=== PATIENT | female | born 1930 | race African-American/Black ===

== ENCOUNTER 2018-08-11 06:06 | Emergency (ER) | payer OTHER ==
[~2018-08-11] VITALS: Ht 165.1 cm; Wt 73.0 kg
[2018-08-11] MEDS ORDERED: MORPHINE SULFATE 4 MG/ML CPJ (NOT FOR IM USE) IV STA (06:23)
[2018-08-11] MEDS ORDERED: MORPHINE SULFATE 10 MG/ML CPJ IV ONE ×2 (06:45→13:15)
[2018-08-11 07:27] LABS: CHLORIDE 106 mEq/L (98-107)
[2018-08-11 07:29] LABS: INR 1.1; PROTHROMBIN TIME 10.7 sec (9.1-11.1)
[2018-08-11 07:32] LABS: HEMATOCRIT. 33.7 % (36.0-48.0); HEMOGLOBIN. 10.8 g/dL (12.0-16.0); MEAN CORPUSCULAR HEMOGLOBIN 24.9 pg (28.0-32.0); MEAN CORPUSCULAR VOLUME 77.6 fL (81.0-99.0); MEAN PLATELET VOLUME 8.7 fl (7.4-10.4); PLATELET 237 x1000/uL (130-400); RED BLOOD CELL COUNT 4.34 mill/uL (4.2-5.4); RED CELL DISTRIBUTION WIDTH 15.1 % (11.6-14.6)
[2018-08-11 08:14] LABS: PLATELET ESTIMATE NORMAL
[2018-08-11] MEDS ORDERED: KETOROLAC 30MG/ML VIAL IV ONE (08:45)
[2018-08-11 12:54] VITALS: BP 132/78
[2018-08-11] MEDS ORDERED: MORPHINE SULFATE 4 MG/ML CPJ (NOT FOR IM USE) IV ONE (13:00)
== END 2018-08-11 13:38 | disposition short-term general hospital (02) ==
LOC: ER 06:06 → CANBEDREQ 09:43 → ER 13:38
DX: S72.032A Displaced midcervical fracture of left femur, initial encounter for closed fracture (principal); R55 Syncope and collapse; I10 Essential (primary) hypertension; W01.0XXA Fall on same level from slipping, tripping and stumbling without subsequent striking against object, initial encounter; Y93.89 Activity, other specified; Y92.89 Other specified places as the place of occurrence of the external cause; Y99.8 Other external cause status
CPT/HCPCS: 36415; 70450; 71045; 73502; 73552; 80053; 84484; 85025; 85610; 93005; 96374; 96375; 96376; 99285; J1885; J2270